=== PATIENT | male | born 1985 | race Caucasian/White ===

== ENCOUNTER 2018-07-11 10:43 | Emergency (ER) | payer MEDICAID ==
--- NOTE | 2018-07-11 10:51 | EDPHY ---
H & P Stated Complaint: dizziness, poor sleep, nausea, hands tingling this morning Time Seen by Provider: 07/11/18 10:51 HPI/ROS: HPI: This is a 33-year-old male who presents with Chief Complaint: dizziness, poor sleep, nausea, hands tingling this morning Location: body Quality: Multiple complaints Duration: 3 weeks Signs and Symptoms: No fever, no nausea, no vomiting, no abdominal pain, no lethargy, no joint pain, no rash, no chest pain, no shortness of breath, no neck pain, no headache Timing: Slowly worsening Severity: [id number] Context: Patient presents accompanied by significant other for a 2 to three- week history 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 He reports that he has had increased stress and because of this he has had difficulty sleeping at night with nausea and tingling in his hands this morning. Patient reports that he normally does not have anxiety or depression but does admit to feeling anxious over the last 2-3 weeks. He denies any suicidal ideation, homicidal ideation, hallucinations, paranoia. No previous psychiatric history. He reports that he has a strong support system but no primary care provider. He worked in the 100 degree he yesterday wearing well during suit and mask and believes that he may be dehydrated. He reports that in the past when he was read dehydrated he had cramps in his hands and legs. He reports cramping in both of his hands this morning but none in his calves or legs. Denies any nausea, vomiting, abdominal pain, lethargy, fever. Denies any recent long distance travel. Eating and drinking without difficulty but does report decreased appetite due to stress. Modifying Factors: None Comment: ROS: A comprehensive 10 system review of systems is otherwise negative aside from elements mentioned in the history of present illness. MEDICAL/SURGICAL/SOCIAL HISTORY: Medical history: Generally healthy. Does not take any regular medications. Surgical history: Orthopedic type Social history: Never smoked. Family history noncontributory. CONSTITUTIONAL: Extremely polite and cooperative young adult male, awake and alert, no obvious distress HEENT: Atraumatic and normocephalic, PERRL, EOMI. Nares patent; no rhinorrhea; no nasal mucosal edema. Tympanic membranes clear. Oropharynx clear, no exudate and moist pink mucosa. Airway patent. No lymphadenopathy. No meningismus. Cardiovascular: Normal S1/S2, regular rate, regular rhythm, without murmur rub or gallop. PULMONARY/CHEST: Symmetrical and nontender. Clear to auscultation bilaterally. Good air movement. No accessory muscle usage. ABDOMEN: Soft, nondistended, nontender, no rebound, no guarding, no peritoneal signs, no masses or organomegaly. No CVAT. EXTREMITIES: 2/2 pulses, strength 5/5, no deformities, no clubbing, no cyanosis or edema. Negative Homans sign. No palpable cords. NEUROLOGICAL: no focal neuro deficits. GCS 15. SKIN: Warm and dry, tattoos present, no erythema. no rash. Good capillary refill. Source: Patient Exam Limitations: No limitations - Personal History Current Tetanus/Diphtheria Vaccine: Unsure Current Tetanus Diphtheria and Acellular Pertussis (TDAP): Unsure - Medical/Surgical History Hx Asthma: No Hx Chronic Respiratory Disease: No Hx Diabetes: No Hx Cardiac Disease: No Hx Renal Disease: No Hx Cirrhosis: No Hx Alcoholism: No Hx HIV/AIDS: No Hx Splenectomy or Spleen Trauma: No Other PMH: ortho surgeries - Social History Smoking Status: Never smoked Constitutional: Initial Vital Signs Temperature (C) 36.8 C 07/11/18 10:45 Heart Rate 84 07/11/18 10:45 Respiratory Rate 18 07/11/18 10:45 Blood Pressure 128/75 H 07/11/18 10:45 O2 Sat (%) 98 07/11/18 10:45 O2 Delivery Mode Room Air Allergies/Adverse Reactions: No Known Allergies Allergy (Unverified 07/11/18 10:45) Home Medications: Medication Instructions Recorded NK [No Known Home Meds] 07/11/18 Medical Decision Making ED Course/Re-evaluation: Vital signs reviewed and stable upon arrival. No systemic signs. BMP and magnesium labs ordered to evaluate for acute kidney injury and electrolyte imbalance. Given 1 L normal saline. 1130: Labs reviewed. No signs of TOÑA/electrolyte imbalance. 1140: Reassessed patient who reports improvement in symptoms. Work note provided per request. Patient prefers to try [id number]-[id number] herbal supplements versus pharmacotherapy. Referral to [facility] provided to establish care. This patient was seen under the supervision of my secondary supervising physician. I evaluated care for this patient independently. Discussed this patient with Dr. French. Differential Diagnosis: Dizziness including but not limited to peripheral and central causes of vertigo , orthostatic causes including dehydration, and blood loss. - Data Points Laboratory Results: Laboratory Results 07/11/18 11:05 07/11/18 11:05 Sodium 139 mEq/L mEq/L (135-145) Potassium 3.7 mEq/L mEq/L (3.3-5.0) Chloride 102 mEq/L mEq/L (97-110) Carbon Dioxide 25 mEq/l mEq/l (22-31) Anion Gap 12 mEq/L mEq/L (8-16) BUN 15 mg/dL mg/dL (7-23) Creatinine 0.8 mg/dL mg/dL (0.7-1.3) Estimated GFR > 60 Glucose 100 mg/dL mg/dL (70-100) Calcium 10.5 mg/dL H mg/dL (8.5-10.4) Magnesium 2.0 mg/dL mg/dL (1.6-2.3) Medications Given: Discontinued Medications Sodium Chloride (Ns) 1,000 mls @ 0 mls/hr IV EDNOW ONE; Wide Open PRN Reason: Protocol Stop: 07/11/18 10:56 Last Admin: 07/11/18 11:02 Dose: 1,000 mls Departure - Departure Disposition: Home, Routine, Self-Care Clinical Impression: Work-related stress Adverse effect of heat Qualifiers: Encounter type: initial encounter Qualified Code(s): T67.9XXA - Effect of heat and light, unspecified, initial encounter Condition: Good Instructions: Dehydration (ED), Heat Exhaustion (ED), Stress (ED) Additional Instructions: Consume a minimum of 8-10 glasses of water or electrolyte fluid replacement drinks that include Gatorade, Powerade, Pedialyte. Establish care at the [facility]. Try taking lpnk-yhy-jvcksap supplementation like [place]'s Wort or melatonin to aid in insomnia/mood disturbance. Call 911 if you have thoughts of hurting or killing yourself or anyone else, or have any new or worsening symptoms that concern you. Referrals: [facility],. [Clinic] - As per Instructions Stand Alone Forms: Work Excuse
[2018-07-11] MEDS ORDERED: NS 1,000 ML IV ONE (10:55)
[2018-07-11 11:53] VITALS: BP 125/78
== END 2018-07-11 12:07 | disposition home or self-care (01) ==
DX: T67.9XXA Effect of heat and light, unspecified, initial encounter (principal); R42 Dizziness and giddiness; E86.0 Dehydration; Z56.6 Other physical and mental strain related to work

== ENCOUNTER 2019-02-27 12:58 | Emergency (ER) | payer MEDICAID ==
[2019-02-27 13:10] VITALS: BP 113/89
[2019-02-27] MEDS ORDERED: PROPARACAINE 0.5% 15 ML OPHT DROP OP ONE (13:19)
[2019-02-27] MEDS ORDERED: FLUORESCEIN SODIUM 1 MG STRIP OP ONE (13:28)
[2019-02-27] MEDS ORDERED: PROPARACAINE 0.5% 15 ML OPHT DROP ONE (13:31)
[2019-02-27] MEDS ORDERED: ERYTHROMYCIN 0.5% 1 GM OPHT.OINT RTEYE ONE (13:53)
--- NOTE | 2019-02-27 13:55 | EDPHY ---
General Time Seen by Provider: 02/27/19 13:12 Narrative: CLINICAL IMPRESSION: Corneal Rust Ring ASSESSMENT/PLAN: 34-year-old male presents to the emergency department with 2 days of a foreign body to the right eye. No associated vision changes, discharge from the eye, headaches. Unsure of tetanus status which was updated tonight. On exam, patient has a small metallic foreign body at approximately 3:00 a.m. In the left eye. This was easily removed. However he was intolerant of further attempts at removal of a rust ring. He was given erythromycin ointment and advised to follow up with Ophthalmology. Referral given. He will continue taking Tylenol or ibuprofen at home for pain. Warning signs return to ED sooner discussed discharge. ED PROCEDURES: See lab and/or imaging results below Procedure: Foreign body removal from cornea: Anesthesia: Topical. After verbal consent from the patient, an embedded metallic foreign body was removed from the cornea of the left eye, at approximately 3:00 a.m.. The metallic foreign body was removed manually using a needle using direct visualization. Following removal there was a rust ring. Patient was intolerant of additional attempts at removing this. There were no complications and the patient tolerated the procedure well. The procedure was performed by myself. CHIEF COMPLAINT: Foreign body right eye HPI: 34-year-old male presents to the emergency department with complaints of a foreign body to the right eye x2 days. Patient owns an auto body shop locally, reports he believes he had metal shoot into his eye a couple days ago. He has been using eyedrops and rinsing the eye with water. He has had this happen in the past. He does not know his tetanus status . No complaints of vision loss or vision change. No prior eye surgery. He does not wear glasses or contacts. PAST MEDICAL HISTORY: None reported See triage summary and nurse notes for addition applicable history Pertinent Past Surgical History: None reported Social History: [ Unknown tetanus status, updated in the ED REVIEW OF SYSTEMS: A full 10 point review of systems was negative except for those mentioned in HPI. PHYSICAL EXAM: General Appearance: Alert, oriented, appropriate, cooperative, NAD, well hydrated, non-toxic appearing, VSS, no hypoxia. Eyes: PERRLA, obvious small foreign body to right eye at 3:00 a.m., no acute vision change, no nystagmus, swelling, discharge, pain or photosensitivity. Conjunctiva pink, no pallor or injection Skin: Warm, dry, no rashes, no nodules on palpation. MEDICAL DECISION MAKING: Patient was seen independently. Secondary supervising physician at time of evaluation was: Dr Mcgregor . Diagnosis: Right corneal metallic foreign body with rust ring . New, requires workup Summary: See Assessment and Plan for summary of ED visit Patient Progress: Stable for discharge. - History Smoking Status: Never smoked - Objective Vital Signs: Initial Vital Signs Temperature (C) 36.8 C 02/27/19 13:08 Heart Rate 91 02/27/19 13:08 Respiratory Rate 16 02/27/19 13:08 Blood Pressure 113/89 H 02/27/19 13:08 O2 Sat (%) 97 02/27/19 13:08 O2 Delivery Mode Room Air Allergies/Adverse Reactions: No Known Allergies Allergy (Unverified 07/11/18 10:45) Home Medications: Medication Instructions Recorded NK [No Known Home Meds] 07/11/18 Medications Given: Discontinued Medications Diphtheria/Tetanus/Acell Pertussis (Boostrix) 0.5 ml IM .ONCE ONE Stop: 02/27/19 14:00 Last Admin: 02/27/19 14:05 Dose: 0.5 ml Erythromycin (Erythromycin 0.5%) 1 yasir RTEYE ONCE ONE Stop: 02/27/19 13:54 Last Admin: 02/27/19 14:05 Dose: 1 yasir Departure - Departure Disposition: Home, Routine, Self-Care Clinical Impression: Corneal rust ring of right eye Condition: Good Instructions: Corneal Abrasion (ED) Additional Instructions: DISCHARGE INSTRUCTIONS FROM YOUR DOCTOR Thank you for visiting our emergency department today. You were treated by a physician licensed occupational therapy assistant today and your case was reviewed with our ED Attending physician. Please keep in mind that discharge from the emergency department does not mean that there is nothing wrong - it simply means that we have not identified an emergency condition that requires further evaluation or treatment in the hospital. You should always plan to follow up with primary care for re- evaluation of your condition in the next 2-3 days. If you have been referred to a specialist, please call as soon as possible (today or tomorrow) to schedule your follow up appointment at the appropriate time. FOREIGN BODY WAS REMOVED FROM THE EYE, YOU HAVE A RETAINED RUST RING. THIS NEEDS TO BE SEEN BY OPHTHALMOLOGY. ANTIBIOTIC EYE OINTMENT WAS PRESCRIBED TODAY. PLEASE CALL THE FINANCE SPECIALIST TODAY AND SEE IF HE CAN GET A FOLLOW-UP APPOINTMENT. RETURN TO THE EMERGENCY DEPARTMENT FOR SEVERE WORSENING EYE PAIN, DISCHARGE FROM THE EYE, VISION CHANGES, FEVER OR ANY OTHER CONCERN. People present with illnesses and injuries in different ways, and it is always possible that we have missed something. You may always return for re-evaluation if symptoms worsen or if they are not improving or if you develop new/different symptoms. Again, thank you for choosing our emergency department. We hope that you feel better. Referrals: NONE *PRIMARY CARE P,. [Primary Care Provider] - As per Instructions GIOVANNI MCKINNEY [Non Staff Provider (MD)] - 1 day without fail
[2019-02-27] MEDS ORDERED: TDAP ADULT 0.5 ML INJ (BOOSTRIX) IM ONE (13:59)
== END 2019-02-27 14:00 | disposition home or self-care (01) ==
PROC: 08C0XZZ Extirpation of Matter from Right Eye, External Approach (ICD-10-PCS; principal; 2019-02-27)
DX: T15.01XA Foreign body in cornea, right eye, initial encounter (principal); Z23 Encounter for immunization; X58.XXXA Exposure to other specified factors, initial encounter